=== PATIENT | male | born 1985 | race Two or more races ===

== ENCOUNTER 2017-05-15 08:32 | Emergency (ER) | payer SELFPAY ==
[2017-05-15 08:39] VITALS: BP 131/78
[2017-05-15] MEDS ORDERED: PENICILLIN V POTASSIUM 500 MG TABLET PO ONE (09:07)
--- NOTE | 2017-05-15 09:16 | ER Document Report ---
ED ENT - General Chief Complaint: Sore Throat Stated Complaint: THROAT PAIN Time Seen by Provider: 05/15/17 08:56 Mode of Arrival: Ambulatory Information source: Patient Notes: Patient is a 31-year-old male who presents to the ER today for 1 week of sore throat with some fevers and chills. Patient has been taking Tylenol and BC powder at home which is been helping a little. He denies any runny nose, sinus congestion, cough or other symptoms. TRAVEL OUTSIDE OF THE [place] IN LAST 30 DAYS: No - Related Data Allergies/Adverse Reactions: No Known Allergies Allergy (Unverified 05/15/17 08:38) Past Medical History - General Information source: Patient - Social History Smoking Status: Unknown if Ever Smoked Family History: Reviewed & Not Pertinent Patient has suicidal ideation: No Patient has homicidal ideation: No Renal/ Medical History: Denies: Hx Peritoneal Dialysis Review of Systems - Review of Systems Constitutional: See HPI EENT: See HPI Cardiovascular: No symptoms reported Respiratory: No symptoms reported Gastrointestinal: No symptoms reported Genitourinary: No symptoms reported Male Genitourinary: No symptoms reported Musculoskeletal: No symptoms reported Skin: No symptoms reported Hematologic/Lymphatic: No symptoms reported Neurological/Psychological: No symptoms reported Physical Exam - Vital signs Vitals: Temp Pulse Resp BP Pulse Ox 99.1 F 87 20 131/78 H 98 05/15/17 08:38 05/15/17 08:38 05/15/17 08:38 05/15/17 08:38 05/15/17 08:38 - Notes Notes: He PHYSICAL EXAMINATION: GENERAL: mildly ill appearing, in no acute distress. HEAD: Atraumatic, normocephalic. EYES: Pupils equal round and reactive to light, extraocular movements intact, sclera anicteric, conjunctiva are normal. ENT: ear canals without erythema or foreign body, TMs pearly zendejas with good bony landmarks, nares patent, oropharynx erythematous with enlarged tonsils bilaterally and exudates. Moist mucous membranes. 2 apthous ulcers noted to tongue and soft palate NECK: Normal range of motion, supple without lymphadenopathy LUNGS: CTAB and equal. No wheezes rales or rhonchi. HEART: Regular rate and rhythm without murmurs EXTREMITIES: Normal range of motion, no pitting edema. No cyanosis. NEUROLOGICAL: Cranial nerves grossly intact. Normal sensory/motor exams. PSYCH: Normal mood, normal affect. SKIN: Warm, Dry, normal turgor, no rashes or lesions noted Course - Vital Signs Vital signs: Temp Pulse Resp BP Pulse Ox 99.1 F 87 20 131/78 H 98 05/15/17 08:38 05/15/17 08:38 05/15/17 08:38 05/15/17 08:38 05/15/17 08:38 Discharge - Discharge Clinical Impression: Strep pharyngitis Condition: Good Disposition: HOME, SELF-CARE Additional Instructions: Return immediately for any new or worsening symptoms. Follow up with primary care provider, call tomorrow to make followup appointment. Prescriptions: Nystatin/Dexameth/Diphen [Magic Mouthwash (Omh Formula) Susp] 5 ml PO QID #120 ml Penicillin V Potassium [Penicillin Vk 500 mg Tablet] 500 mg PO BID #20 tablet Forms: Return to Work
== END 2017-05-15 09:35 | disposition home or self-care (01) ==
LOC: ER 08:32
DX: J02.0 Streptococcal pharyngitis (principal); R50.9 Fever, unspecified; K12.0 Recurrent oral aphthae
CPT/HCPCS: 99282